=== PATIENT | male | born 1995 | race Caucasian/White ===

== ENCOUNTER 2018-11-27 10:43 | Emergency (ER) | payer MEDICAID ==
[~2018-11-27] VITALS: Ht 190.5 cm; Wt 159.1 kg
[2018-11-27 11:02] VITALS: BP 116/70
[2018-11-27] MEDS ORDERED: BACITRACIN 0.9 GM PACKET OINTMENT TP ONE (12:00)
[2018-11-27] MEDS ORDERED: SODIUM CHLORIDE 0.9% 250 ML IRRIG SOLUTION BOTTLE IRRIG ONE (12:00)
[2018-11-27] MEDS ORDERED: PERTUSS(ACELL),DIPH,TET VAC/PF 0.5 ML VIAL IM ONE (12:00)
== END 2018-11-27 12:17 | disposition home or self-care (01) ==
LOC: EMS 10:46
DX: S81.811A Laceration without foreign body, right lower leg, initial encounter (principal); W45.0XXA Nail entering through skin, initial encounter; Y93.89 Activity, other specified; Y92.89 Other specified places as the place of occurrence of the external cause; Y99.8 Other external cause status
CPT/HCPCS: 90471; 90715